=== PATIENT | male | born 1965 | race Two or more races ===

== ENCOUNTER 2020-12-09 16:13 | Emergency (ER) | payer MEDICAID ==
[~2020-12-09] VITALS: Ht 170.2 cm; Wt 63.5 kg
[2020-12-09 17:14] LABS: Eosinophils # (auto) 0 10 ^3/uL (0-0.8); Eosinophils % (auto) 0.1 % (0.0-7.0); Lymphocytes # (auto) 0.8 10 ^3/uL (0.4-5.4); Red Cell Distribution Width 13.9 % (11.8-14.3)
[2020-12-09 17:16] LABS: Basophils # (auto) 0.1 10 ^3/uL (0-0.2); Basophils % (auto) 0.3 % (0.0-2.0); Hematocrit 40.1 % (41.0-53.0); Hemoglobin 14.1 g/dL (13.5-17.5); Lymphocytes % (auto) 3.6 % (10.0-50.0); Mean Corpuscular Hemoglobin 35.5 pg (28.0-32.0); Mean Corpuscular Hgb Conc. 35.3 g/dL (32.0-36.0); Mean Corpuscular Volume 100.6 fL (80.0-100.0); Monocytes % (auto) 4.5 % (0.0-12.0); Neutrophils # (auto) 20.2 10 ^3/uL (1.6-8.6); Neutrophils % (auto) 91.5 % (37.0-80.0); Nucleated Red Blood Cells % 0.7 %; Platelet Count (auto) 196 10^3/uL (140-450); Red Blood Cells 3.99 10^6/uL (4.5-5.90); White Blood Cell 22.1 10^3/uL (4.4-10.8)
[2020-12-09] MEDS ORDERED: PIPERACILLIN-TAZOB 3.375GM 100 ML IV ONE (17:30)
[2020-12-09 17:33] LABS: Albumin 2.8 g/dL (3.4-5.0); Calcium 8.4 mg/dL (8.5-10.1)
[2020-12-09 17:42] LABS: Bilirubin, Total 2.7 mg/dL (0.2-1.0); Total Protein 7.6 g/dL (6.4-8.2)
[2020-12-09 17:44] LABS: Potassium 2.8 mmol/L (3.5-5.1)
[2020-12-09] MEDS ORDERED: SODIUM CHLORIDE 0.9% 1,000 ML IV ONE ×2 (17:45)
[2020-12-09] MEDS ORDERED: POTASSIUM CHL 20MEQ/100ML 100 ML IV ONE (18:00)
[2020-12-09 18:18] VITALS: BP 164/101
== END 2020-12-09 18:30 | disposition short-term general hospital (02) ==
LOC: ER 16:13
DX: K65.9 Peritonitis, unspecified (principal); K63.1 Perforation of intestine (nontraumatic); K74.60 Unspecified cirrhosis of liver; F10.20 Alcohol dependence, uncomplicated; F17.210 Nicotine dependence, cigarettes, uncomplicated; Z20.822 Contact with and (suspected) exposure to COVID-19; Y90.9 Presence of alcohol in blood, level not specified
CPT/HCPCS: 36415; 74176; 80053; 83605; 83690; 85025; 87040; 87426; 93005; 96365; 99285; J2543; J3480